=== PATIENT | male | born 1965 | race Two or more races ===

== ENCOUNTER 2017-09-17 03:10 | Emergency (ER) | payer OTHER ==
[~2017-09-17] VITALS: Ht 172.7 cm; Wt 80.0 kg
[2017-09-17 04:40] VITALS: BP 114/62
== END 2017-09-17 04:48 | disposition home or self-care (01) ==
LOC: ED 04:45
DX: F10.120 Alcohol abuse with intoxication, uncomplicated (principal); Z79.899 Other long term (current) drug therapy
CPT/HCPCS: 36415; 80307; 99283

== ENCOUNTER 2019-06-03 11:40 | Emergency (ER) | payer BC, OTHER ==
[~2019-06-03] VITALS: Ht 175.3 cm; Wt 81.2 kg
[2019-06-03] MEDS ORDERED: LOSA50TA14 PO (12:00)
--- NOTE | 2019-06-03 12:01 | NUR ---
Pt ambulated back to room with a smooth and steady gait, MARx4, P/W/D, placed on monitor, RESP WNL, NAD, given warm blanket for comfort, WCTM.
[2019-06-03] MEDS ORDERED: ASPIRIN 81 MG TABLET CHEW ONE (12:25)
[2019-06-03] MEDS ORDERED: ASPIRIN 81 MG TABLET CHEW PO ONE (12:30)
[2019-06-03 12:37] LABS: BASOPHILS # (AUTO) 0.03 x10^3/uL (0-0.1); BASOPHILS % (AUTO) 1 % (0-1); EOSINOPHILS # (AUTO) 0.24 x10^3/uL (0-0.4); EOSINOPHILS % (AUTO) 4 % (1-7); LYMPHOCYTES # (AUTO) 1.38 x10^3/uL (1-3.4); LYMPHOCYTES % (AUTO) 23 % (22-44); MD NO; MEAN CORPUSCULAR HEMOGLOBIN 30.4 pg (27.5-34.5); MEAN CORPUSCULAR HGB CONC 33.6 g/dL (33.2-36.2); MEAN CORPUSCULAR VOLUME 90.4 fL (81-97); MEAN PLATELET VOLUME 7.5 fL (7.4-10.4); MONOCYTES # (AUTO) 0.38 x10^3/uL (0.2-0.8); MONOCYTES % (AUTO) 6 % (2-9); NEUTROPHILS # (AUTO) 4.11 x10^3/uL (1.8-6.8); NEUTROPHILS % (AUTO) 67 % (42-75); PLATELET COUNT 294 x10^3/uL (130-400); RED BLOOD COUNT 5.18 x10^6/uL (4.38-5.82); RED CELL DISTRIBUTION WIDTH 13.5 % (9.4-14.8)
[2019-06-03 12:46] LABS: ALANINE AMINOTRANSFERASE 29 U/L (12-78); ANION GAP 4 mmol/L (5-15); CALCIUM 9.3 mg/dL (8.5-10.1); CHLORIDE 106 mmol/L (98-107); CREATININE 0.76 mg/dL (0.7-1.3)
[2019-06-03 12:51] LABS: ALKALINE PHOSPHATASE 104 U/L (45-117); BILIRUBIN,TOTAL 0.3 mg/dL (0.2-1.0); TOTAL PROTEIN 7.4 g/dL (6.4-8.2); TROPONIN I < 0.015 ng/mL (0.000-0.045)
--- NOTE | 2019-06-03 13:06 | NUR ---
Pt resting in [facility], P/W/D, NAD, RESP WNL, VSS, waiting for MD recheck, WCTM.
[2019-06-03 13:36] VITALS: BP 138/90
--- NOTE | 2019-06-03 13:38 | NUR ---
Eduin given discharge instructions and they have confirmed that they understand the instructions. Patient ambulatory with steady gait. Denies additional questions at this time.
== END 2019-06-03 13:50 | disposition home or self-care (01) ==
LOC: ED 12:44
DX: J15.9 Unspecified bacterial pneumonia (principal); R07.89 Other chest pain; I10 Essential (primary) hypertension; F17.200 Nicotine dependence, unspecified, uncomplicated
CPT/HCPCS: 36415; 71045; 80053; 84484; 85025; 85379; 93005; 99285

== ENCOUNTER 2020-11-10 13:04 | Emergency (ER) | payer OTHER ==
[~2020-11-10] VITALS: Ht 177.8 cm; Wt 69.0 kg
[~2020-11-10 13:04] MED LIST: LOSA50TA14 PO
--- NOTE | 2020-11-10 13:23 | NUR ---
ZORAIDA AFTER BEING FOUND INTOXICATED IN FRONT OF SANDS. PT BAL .275 AND PTS BS 382. PT DENIES BEING DM AND PT STATES HE DRANK "5 OR 7 BEERS" PT POSTIONED TO COMFORT. ATTACHED TO MONITORS. VSS. CESAR
[2020-11-10] MEDS ORDERED: SODIUM CHLORIDE 0.9% 1,000ML IVBOLUS ONE (13:30)
[2020-11-10] MEDS ORDERED: THIAMINE 100MG TABLET PO ONE (13:30)
[2020-11-10 13:54] LABS: PH, VENOUS 7.309 pH (7.320-7.420)
[2020-11-10 13:55] LABS: O2 FLOW ROOM AIR L/min
[2020-11-10 13:59] LABS: BASOPHILS % (AUTO) 1 % (0-1); EOSINOPHILS % (AUTO) 1 % (1-7); LYMPHOCYTES % (AUTO) 33 % (22-44); MEAN CORPUSCULAR HEMOGLOBIN 31.3 pg (27.5-34.5); MEAN CORPUSCULAR HGB CONC 34.7 g/dL (33.2-36.2); MEAN PLATELET VOLUME 7.3 fL (7.4-10.4); MONOCYTES % (AUTO) 6 % (2-9); NEUTROPHILS % (AUTO) 59 % (42-75); PLATELET COUNT 268 x10^3/uL (130-400); RED BLOOD COUNT 4.83 x10^6/uL (4.38-5.82); RED CELL DISTRIBUTION WIDTH 13.4 % (9.4-14.8)
[2020-11-10 14:05] LABS: ALANINE AMINOTRANSFERASE 19 U/L (12-78); ALBUMIN 3.3 g/dL (3.4-5.0); ANION GAP 11 mmol/L (5-15); CALCIUM 8.1 mg/dL (8.5-10.1); CHLORIDE 101 mmol/L (98-107); CREATININE 0.77 mg/dL (0.7-1.3)
[2020-11-10 14:07] LABS: ALKALINE PHOSPHATASE 140 U/L (45-117); BILIRUBIN,TOTAL 0.2 mg/dL (0.2-1.0); TOTAL PROTEIN 6.9 g/dL (6.4-8.2)
--- NOTE | 2020-11-10 14:11 | NUR ---
PT ASLEEP WITH EVEN AND UNLABORED RESPIRTIONS. VSVanna. ARSENIO
[2020-11-10 15:00] VITALS: BP 138/93
[2020-11-10 15:01] LABS: ACETONE, SERUM Negative (Negative)
--- NOTE | 2020-11-10 15:14 | NUR ---
BREAK RN, PT FOUND SITTING IN CHAIR IN ROOM, COVERED IN BLOOD FROM PULLING IV OUT. PT CONFUSED, STATES "IM IN [facility] BECAUSE I CANT TAKE CARE OF MYSELF" WHILE KEEP EYES SHUT. PT UNABLE TO TELL THIS RN WHERE HE LIVES. PT CLEANED UP, AND HELPED BACK INTO BED. PT AGREEABLE TO STAYING AND RESTING LONGER THEN RE-ASSESING DC. 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
--- NOTE | 2020-11-10 15:57 | NUR ---
Patient given discharge instructions and they have confirmed that they understand the instructions. Patient ambulatory with steady gait. NAD, all questions answered appropriately, denies additional needs at this time. No personal belongings left in room after discharge.
== END 2020-11-10 15:58 | disposition home or self-care (01) ==
LOC: ED 14:52
DX: F10.220 Alcohol dependence with intoxication, uncomplicated (principal); E11.65 Type 2 diabetes mellitus with hyperglycemia; I10 Essential (primary) hypertension; Y90.0 Blood alcohol level of less than 20 mg/100 ml; Z91.19 Patient's noncompliance with other medical treatment and regimen
CPT/HCPCS: 36415; 80053; 80320; 82010; 82803; 82962; 85025; 93005; 99284; J7030; G0480